=== PATIENT | female | born 2000 | race Caucasian/White ===

== ENCOUNTER 2018-03-03 10:08 | Emergency (ER) | payer OTHER ==
[~2018-03-03] VITALS: Ht 175.3 cm; Wt 74.8 kg
--- NOTE | 2018-03-03 10:20 | NUR ---
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 NOTED CALM, DIREACTABLE. VSS. AT BS FOR EVAL. SAFETY AND COMFORT MEASURES PROVIDED. UNDERCOVER OPERATOR AT THE BS. WILL MONITOR.
--- NOTE | 2018-03-03 10:57 | NUR ---
PT IS REFUSING BLOOD DRAW. AWAITING FOR URINE SAMPLE.
[2018-03-03 11:05] VITALS: BP 129/71
--- NOTE | 2018-03-03 11:15 | NUR ---
CALLED CLINICIAN RAFFAELE FOR EVAL. WILL BE HERE SHORTLY.
--- NOTE | 2018-03-03 11:18 | NUR ---
URINE SAMPLE OBTAINED FROM PT. UPDATED WITH POC. FAMILY MEMBERS AT BS.
[2018-03-03 11:23] LABS: APPEARANCE,URINE Slightly Cloudy (CLEAR); BILIRUBIN,URINE SMALL (NEGATIVE); BLOOD, URINE Negative Ery/uL (NEGATIVE); COLOR,URINE Yellow (YELLOW); KETONES,URINE Trace (NEGATIVE); LEUKOCYTE ESTERASE ,URINE Negative (NEGATIVE); NITRITE, URINE Negative (NEGATIVE); PROTEIN,URINE 100 mg/dl (NEGATIVE); UGLUCOSE Negative (NEGATIVE); UROBILINOGEN,URINE 0.2 EU/dL (0.2)
--- NOTE | 2018-03-03 11:29 | NUR ---
CALLED RAFFAELE LARRY OPERATOR
--- NOTE | 2018-03-03 11:30 | NUR ---
Patient eloped from facility. ER MD notified.
--- NOTE | 2018-03-03 11:38 | NUR ---
CALLED GET NON EMERGENCY DISPATCH, SPOKE WITH [employer] CONTROL SCHEDULER 902. NOTIFIED THEM THAT THE PATIENT ELOPED.
[2018-03-03 11:42] LABS: BACTERIA,URINE Moderate /HPF (None Seen); RBC,URINE 0-2 /HPF (0-2); SQUAMOUS EPITHELIAL CELL,UR Many /HPF (None Seen)
== END 2018-03-03 11:51 | disposition left against medical advice (07) ==
LOC: ER 10:10
DX: F32.9 Major depressive disorder, single episode, unspecified (principal); R45.851 Suicidal ideations; J45.909 Unspecified asthma, uncomplicated
CPT/HCPCS: 80305; 81001; 84703; 87086; 99284; A4606; Z7610; 81000-TC